=== PATIENT | female | born 1975 | race Caucasian/White ===

== ENCOUNTER 2023-09-11 16:09 | Emergency (ER) | payer OTHER, SELFPAY ==
[2023-09-11 16:14] VITALS: BP 111/73; PULSE 84; RESP 16; TEMP 37.2; O2SAT 98; BMI 26.3
--- NOTE | 2023-09-11 16:25 | ED.GENADULT ---
HPI - General Adult General Chief complaint: Extremity Pain/Injury, Lower Stated complaint: possible broken bone in foot Time Seen by Provider: 09/11/23 16:24 History of Present Illness HPI narrative: patient is concerned about the left foot is hurting for the past 3 weeks unsure what happened but yesterday sat on the foot . has a tender spot by ankle on the outside of the ankle. able to bear weight can walk flat footed but if step off balance on one side or the other increase in pain otherwise pain is an ache. denies injury . 47-year-old woman presenting to the emergency department with complaint of left foot pain over last 3 weeks with uncertain injury. Yesterday however sat on her foot and had abrupt increase in her pain. Painful to bear weight with full foot. Absent of weight-bearing is more of an ache. No redness or other joint involvement. A little swelling. Related Data Home Medications Medication Instructions Recorded Confirmed No Known Home Medications 09/11/23 09/11/23 Allergies Allergy/AdvReac Type Severity Reaction Status Date / Time No Known Drug Allergies Allergy Verified 09/11/23 16:21 Review of Systems Status of ROS: Reports: 6 or more systems reviewed and unremarkable except as noted in History and below PFSH PFS Social History Smoking Status: Current every day smoker What tobacco products do you use: cigarettes Smoking packs per day: 1 Smoking cigarettes per day: 20.0 Do you use any of these nicotine containing products: None Second hand tobacco smoke exposure: No How often do you have a drink containing alcohol: monthly or less How often do you have six or more drinks on one occasion: Never AUDIT-C Alcohol total score: 1 Non-prescribed substance use: denies use Exam Narrative: Exam Narrative: Pleasant. NAD at rest. Skin is warm and dry. No inflammatory changes. No pain to palpation of the malleoli or the base of the 5th metatarsal. No navicular tenderness. She is however tender with Pain to palpation at the base of the 4th metatarsal. Subtly swollen perhaps in this area. No plantar bruising. Const: Vital Signs, click to edit/add: Vital Signs - 24 hr 09/11/23 16:14 Temperature 99.0 F Pulse Rate [Right Pulse Oximeter] 84 Respiratory Rate 16 Blood Pressure [Ri ght Upper Arm] 111/73 Pulse Oximetry 98 Oxygen Delivery Me thod Room Air Documenting provider has reviewed patient's vital signs: yes Course Vital Signs Vital signs: Initial Vital Signs Temperature 99.0 F 09/11/23 16:14 Temperature Source Temporal Artery Scan 09/11/23 16:14 Pulse Rate 84 09/11/23 16:14 Respiratory Rate 16 09/11/23 16:14 Blood Pressure 111/73 09/11/23 16:14 Blood Pressure Mean 85 09/11/23 16:14 Blood Pressure Position Sitting 09/11/23 16:14 Pulse Oximetry 98 09/11/23 16:14 Oxygen Delivery Method Room Air 09/11/23 16:14 Vital Signs Temperature 99.0 F 09/11/23 16:14 Pulse Rate 84 09/11/23 16:14 Respiratory Rate 16 09/11/23 16:14 Blood Pressure 111/73 09/11/23 16:14 Pulse Oximetry 98 09/11/23 16:14 Oxygen Delivery Method Room Air 09/11/23 16:14 Temperature 99.0 F 09/11/23 16:14 Pulse Rate 83 09/11/23 18:26 Respiratory Rate 16 09/11/23 18:26 Blood Pressure 127/85 09/11/23 18:26 Pulse Oximetry 98 09/11/23 18:26 Oxygen Delivery Method Room Air 09/11/23 18:26 Medical Decision Making MDM Narrative Medical decision making narrative: At this point I think it would be time to image this. Can at least do an x-ray. Certainly may be a stress fracture of some sort. May be a ligamentous injury presented by avulsion or abnormal joint spacing. May need upper level imaging but I think x-ray is a place to start. Does not appear to be an inflammatory condition otherwise. Not in typical location for neuroma. X-rays reviewed by me maybe with a little soft tissue swelling but no bony abnormality and joint spaces are maintained. See patient discharge plan Discharge Plan Discharge Clinical Impression: Foot pain, left Patient Disposition: Home, Self-Care Condition: Stable Additional Instructions: I would ice your foot as discussed couple of times daily over the next few days. Might feel better otherwise at rest with an Alec wrap as well. Wear this stiff-soled shoe when up and about. If causing too much pain to ambulate, then go ahead use crutches. Might hope is with some degree of offloading, rest (which can include crutches) that you start to improve. Ibuprofen, acetaminophen, naproxen. Lidocaine patch as discussed might be helpful in the short-term. If not improving over the next week with follow-up with orthopedics for further evaluation/recommendations. Phone number [phone] Prescriptions: No Action No Known Home Medications Follow Up/Referrals: Provider,Not a Local [Primary Care Provider] - Stand Alone Forms: [employer] Info Instructions
--- NOTE | 2023-09-11 16:45 | CRLHL7_ITS ---
For Patients: As a result of the Century Cures Act, medical imaging exams and procedure reports are released immediately into your electronic medical record. You may view this report before your referring provider. If you have questions, please contact your health care provider. Indication: Pain at the base of the 4th metatarsal x3 weeks Comparison: None available. Technique: AP and lateral views left foot were obtained. Findings: There is no displaced fracture or dislocation. There are minimal hammertoe changes of the 2nd through 5th digits. There is mild forefoot soft tissue prominence. Impression: No acute osseus abnormality. Dictated by Anderson Leslie MD @ 09/11/2023 5:42:38 PM (Electronically Signed)
[2023-09-11 18:26] VITALS: BP 127/85; PULSE 83; RESP 16; O2SAT 98
== END 2023-09-11 18:27 | disposition home or self-care (01) ==
PROVIDERS: Emergency Provider Family Medicine
DX: M79.672 Pain in left foot (principal)
CPT/HCPCS: 73620; 99283; 99284